=== PATIENT | female | born 2000 | race Hispanic/Latino ===

== ENCOUNTER 2020-03-01 08:50 | Emergency (ER) | payer SELFPAY ==
--- NOTE | 2020-03-01 08:59 | ED.GENADULT ---
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 20-year-old female patient presents to the [facility] with complaints of back pain x3 days. 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 Denies any specific injury to the back but states that she was doing some moving of tables and pushing and pulling on Sunday when the back pain started. Patient states she has used some [id number] dragon ointments to the back to help with pain. Denies taking any Tylenol, ibuprofen. Denies using any heat. Patient denies any loss of bowel or bladder control and denies any numbness or tingling down the legs. Patient denies or breast-feeding at this time. Related Data Allergies Allergy/AdvReac Type Severity Reaction Status Date / Time No Known Allergies Allergy Verified 03/01/20 09:28 Review of Systems Review of Systems: Narrative: CONSTITUTIONAL: Denies fever, chills, or sweats. EYES: Denies visual changes, redness, or discharge. ENT: Denies rhinorrhea, congestion, sore throat, or otalgia. CARDIOVASCULAR: Denies chest pain, palpitations, or edema. RESPIRATORY: Denies cough or dyspnea. GASTROINTESTINAL: Denies abdominal pain, nausea, vomiting, or diarrhea. GENITOURINARY: Denies dysuria or hematuria. SKIN: Denies rash or itching. MUSCULOSKELETAL: Positive back pain, denies joint pain, or myalgia. NEUROLOGIC: Denies headache, numbness, or weakness. PSYCHIATRIC: Denies anxiety or depression. PMFSH Social History Social History Gender identity (if verbalized by the patient): Female Comments At the time of my signature I agree with nursing past medical history, surgical, social, and family history. There is no relevant family history pertinent to the presenting complaint. Exam Narrative: Exam Narrative: GENERAL: Well-appearing, well-nourished, and in no acute distress. HEAD: Normocephalic, atraumatic. EYES: PERRLA and EOMI. ENT: Nares clear, no rhinorrhea or epistaxis. Mucous membranes moist. NECK: Supple. No lymphadenopathy CHEST: Clear to auscultation. No respiratory distress. HEART: Regular rate and rhythm. No murmur heard. Normal peripheral pulses. ABDOMEN: Soft, nontender, nondistended, normal active bowel sounds. EXTREMITIES: Normal range of motion. No edema. BACK: Patient is able to ambulated without assistance. Pt is seated on the stretcher in no obvouis distress. No surface trauma noted. muscle tenderness to Palpation of the thoracic and lumbar back on bilateral sides throughout the back. Various spasms noted on palpation. No step-offs or deformity noted to the cervical, thoracic or lumbar spine to firm Palpation at the midline. No CVA tenderness to percussion. No saddle anesthesia. ROM: able to stand erect. Normal flexion, extension, Lateral bending and rotation without limitation or complaint of pain. SKIN: Warm, dry, no rash. NEURO: No focal deficits. Alert and oriented x3. Course Vital Signs Vital signs: Vital Signs Temperature 36.5 C 03/01/20 09:07 Pulse Rate 78 03/01/20 09:07 Respiratory Rate 16 03/01/20 09:07 Blood Pressure 115/66 03/01/20 09:07 Pulse Oximetry 99 03/01/20 09:07 Temperature 36.5 C 03/01/20 09:07 Pulse Rate 78 03/01/20 09:07 Respiratory Rate 16 03/01/20 09:07 Blood Pressure 115/66 03/01/20 09:07 Pulse Oximetry 99 03/01/20 09:07 Vital signs reviewed. Medical Decision Making Differential Diagnosis Differential Diagnosis: Differential diagnosis: Acute musculoskeletal injury or exacerbation, neurological emergency, acute coronary syndrome, kidney stones, epidural abscess or hematom
[2020-03-01 09:07] VITALS: BP 115/66; PULSE 78; RESP 16; TEMP 36.5; O2SAT 99
== END 2020-03-01 09:33 | disposition home or self-care (01) ==
PROVIDERS: Emergency Provider Nurse Practitioner Family
DX: M62.830 Muscle spasm of back (principal)
CPT/HCPCS: 99203; G0463

== ENCOUNTER 2022-06-20 11:27 | Emergency (ER) | payer SELFPAY ==
--- NOTE | 2022-06-20 11:40 | ED.ANIMALBIT ---
HPI - Animal Bite General Chief Complaint: Animal Bite Stated Complaint: cat bite to right pointer finger Time Seen by Provider: 06/20/22 11:40 Source: patient Mode of arrival: ambulatory Limitations: no limitations History of Present Illness HPI narrative: Leyla is a 22-year-old female patient presenting to the clinic today with complaints of a cat bite to the right index finger. She reports she was bit by a stray cat yesterday while trying to feed it. Has redness and swelling to the right index finger knuckle Related Data Allergies Allergy/AdvReac Type Severity Reaction Status Date / Time No Known Allergies Allergy Verified 06/20/22 11:47 Review of Systems Review of Systems: Pertinent positives per HPI. Patient denies any fever, chills, rash, headache, visual changes, dizziness, cough, runny nose, sore throat, shortness of breath, chest pain, palpitations, nausea, vomiting, diarrhea, constipation, abdominal pain, or any urinary issues. PMFSH Social History Social History Gender identity (if verbalized by the patient): Female Comments At the time of my signature, I reviewed and agree with the nursing past medical, surgical, social, and family history. There is no relevant family history pertinent to the patient complaint. Exam Narrative: General: Well-developed, well nourished, in no apparent distress Head: Normocephalic, atraumatic. Cardio: Regular rate and rhythm, s1 and s2 normal, no murmur appreciated. Resp: Clear to auscultation bilaterally, no rhonchi, rales, wheezing or rubs. Integumentary: [place], warm, and dry, redness and swelling to the right knuckle of the index finger with a puncture wound over this area. Painful with extension and flexion of finger. No palpable abscess Course Course Emergency Course: Portions of this record may have been created with voice recognition software. Level of Care: Express Care Visit Vital Signs Vital signs: Vital Signs Temperature 36.9 C 06/20/22 11:47 Pulse Rate 92 06/20/22 11:47 Respiratory Rate 18 06/20/22 11:47 Blood Pressure 125/92 H 06/20/22 11:47 Pulse Oximetry 100 06/20/22 11:47 Oxygen Delivery Room Air 06/20/22 11:47 Temperature 36.9 C 06/20/22 11:47 Pulse Rate 92 06/20/22 11:47 Respiratory Rate 18 06/20/22 11:47 Blood Pressure 125/92 H 06/20/22 11:47 Pulse Oximetry 100 06/20/22 11:47 Oxygen Delivery Room Air 06/20/22 11:47 Vital signs reviewed MDM - Animal Bite MDM Narrative Medical decision making narrative: [place] 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 At the time of visit patient is resting comfortably on the exam table. patient has a puncture wound/ infection to the right index Finger knuckle. Prescription for Augmentin was sent to the pharmacy. Tetanus is already up today as she just received 1 back in April. Supportive measures were discussed with the patient she voiced understanding discharge instructions and agrees to treatment plan. Differential Diagnosis Differential diagnosis: Likely bite by animal and cat bite Discharge Plan Discharge Clinical Impression: Puncture wound Cat bite Qualifiers: Encounter type: initial encounter Qualified Code(s): W55.01XA - Bitten by cat, initial encounter Patient Disposition: Home, Self-Care Condition: Stable Instructions: Antibiotic Form, Animal Bite (ED), Puncture Wound (ED) Additional Instructions: La vacuna contra el t?tanos se actualiz? en la cl?alonso hoy. [place] Augmentin seg?n lo prescrito Mantener las heridas limpias y secas. Puede aplicar pomada antibi?lobito triple sobre heridas dos veces al d?a Mantenga las heridas cubiertas si est?n drenando Puede razia Tylenol/Motrin seg?n sea necesario para el dolor Rudy un seguimiento con mckenna PCP en 3 a 5 d?as si los s?ntomas persisten o antes si empeoran Vaya a la kuldeep de emergencias si lavelle s?ntomas empeoran, oliver au
[2022-06-20 11:47] VITALS: BP 125/92; PULSE 92; RESP 18; TEMP 36.9; O2SAT 100
== END 2022-06-20 12:01 | disposition home or self-care (01) ==
PROVIDERS: Emergency Provider Nurse Practitioner Family
DX: S61.230A Puncture wound without foreign body of right index finger without damage to nail, initial encounter (principal); W55.01XA Bitten by cat, initial encounter
CPT/HCPCS: 99213; G0463